=== PATIENT | female | born 1950 | race Caucasian/White ===

== ENCOUNTER 2021-04-11 12:29 | Outpatient (CLI) | payer OTHER | END 2021-04-11 12:41 | disposition home or self-care (01) | LOC: RAD 12:29 | PROVIDERS: ATTEND Family Medicine | DX: M47.895 Other spondylosis, thoracolumbar region (principal) ==

== ENCOUNTER 2021-07-05 09:25 | Outpatient (CLI) | payer OTHER | END 2021-07-05 09:28 | disposition home or self-care (01) | LOC: MAMO-SONO 09:25 | PROVIDERS: ATTEND Family Medicine | DX: Z12.31 Encounter for screening mammogram for malignant neoplasm of breast (principal); N60.11 Diffuse cystic mastopathy of right breast; N60.12 Diffuse cystic mastopathy of left breast ==